=== PATIENT | male | born 1950 | race Caucasian/White ===

== ENCOUNTER 2016-11-21 07:40 | Day surgery (SDC) | payer BC ==
[2016-11-18 14:01] VITALS: BMI 21.6
[2016-11-21] MEDS ORDERED: BUPIVACAINE HCL/PF 2.5 MG/ML - 30 ML VIAL IJ ONE (11:23)
[2016-11-21] MEDS ORDERED: PROPOFOL 20 ML ONE (11:56)
[2016-11-21] MEDS ORDERED: CLINDAMYCIN PHOSPHATE 600 MG/4 ML VIAL ONE (12:07)
[2016-11-21] MEDS ORDERED: DEXAMETHASONE SOD PHOSPHATE 4 MG/1 ML VIAL ONE (12:07)
[2016-11-21] MEDS ORDERED: ONDANSETRON 4 MG/2 ML VIAL ONE (12:07)
[2016-11-21] MEDS ORDERED: KETOROLAC TROMETHAMINE 30 MG/1 ML VIAL ONE (12:17)
[2016-11-21] MEDS ORDERED: BUPIVACAINE HCL/PF 0.25% (2.5MG/ML) 10 ML VIAL IJ ONE (12:20)
[2016-11-21 13:59] VITALS: TEMP 97.6
[2016-11-21] MEDS ORDERED: oxyCODONE HCL 5 MG TABLET PO PRN (14:42)
[2016-11-21] MEDS ORDERED: ONDANSETRON 4 MG/2 ML VIAL IVPUSH PRN (14:42)
[2016-11-21] MEDS ORDERED: LACTATED RINGERS SOLUTION 1,000 ML IV SCH (14:45)
[2016-11-21 15:09] VITALS: BP 124/72; PULSE 56
--- NOTE | 2016-11-24 11:54 | OP ---
DATE OF OPERATION: 11/21/2016 SURGEON: Young Canchola MD PUMP ERECTOR: LISA Johnson PREOPERATIVE DIAGNOSES: 1. Right knee medial and lateral meniscal tear. 2. Right knee cartilage tear. 3. Right knee synovitis. POSTOPERATIVE DIAGNOSES: 1. Right knee medial and lateral meniscal tear. 2. Right knee cartilage tear. 3. Right knee synovitis. PROCEDURE: 1. Right knee arthroscopy with partial meniscectomy medial and lateral meniscus. 2. Right knee arthroscopy with chondroplasty. 2. Right knee arthroscopy with synovectomy major. CPT CODE: 31963, 14651, 53619 FINDINGS: 1. Medial meniscus body and posterior horn tear. 2. Lateral meniscus posterior horn tear. 3. Synovitis patellofemoral medial and lateral notch. 4. Anterior grade 2 cartilage anterior medial tibial plateau. 5. ACL and PCL intact. 6. Anterior grade 1-2 cartilage anterior lateral tibial plateau. 7. Anterior grade 2 cartilage patella facet patellofemoral joint. PROCEDURE: Informed consent was obtained. The patient was taken to the operating room where the right lower extremity was prepped and draped in a sterile fashion. A tourniquet was placed on the right upper thigh but not inflated. Using standard arthroscopic technique, a lateral incision and portal were made which allowed for introduction of the camera into the suprapatellar bursa. This was then taken to the medial joint line where under direct visualization, a medial incision and portal were made. Excessive synovium noted in the medial, lateral, patellofemoral and notch area was removed by the up-biting shaver and Bovie cautery. This was found to bring inflammatory tissue into the joint surface, a source of joint pain and dysfunction. Probing of the medial and lateral meniscus found tears described in the findings. These were removed with an up-biting shaver and taken back to a stable rim. Grade 2-3 degenerative changes were treated with chondroplasty, removing all flaking surfaces with low setting Bovie used along the periphery. Grade 4 changes were treated with abrasion-plasty. All areas of the knee were once again re-examined. The knee was then drained. A single suture was placed on all portals. Sterile dressing was placed. The patient was transferred to the recovery room. YOUNG CANCHOLA M.D. [id number]
--- NOTE | 2016-11-25 17:00 | PATH ---
Surgical Pathology Report Patient Name: ARVIND ALVAREZ [facility]. Rec. #: [id number] /Age/Gender: 1950 (Age: 66) / M Account: [id number] Location: [facility] AMBUL[facility]ORY Taken: 11/21/2016 Received: 11/21/2016 Reported: 11/25/2016 Physicians: Urbano Baeza M.D. Specimen(s) Received RIGHT KNEE SHAVINGS Clinical History Right knee internal derangement Final Diagnosis KNEE, RIGHT, ARTHROSCOPIC SHAVINGS: CHONDROCALCINOSIS (PSEUDOGOUT) INVOLVING CARTILAGE AND FIBROSYNOVIAL TISSUE. Electronically Signed Marla Chavira M.D. Gross Description Received in formalin, labeled "right knee shavings," is a 4.0 x 3.2 x 0.3 cm. aggregate of grover-yellow soft tissue fragments. A reimbursement representative portion is submitted in one cassette. /11/21/201611/21/2016
== END 2016-11-21 15:13 | disposition home or self-care (01) ==
LOC: FASU 07:40
PROVIDERS: ATTEND Orthopaedic Surgery
PROC: 0SBC4ZZ Excision of Right Knee Joint, Percutaneous Endoscopic Approach (ICD-10-PCS; 2016-11-21)
PROC: 0SBC4ZZ Excision of Right Knee Joint, Percutaneous Endoscopic Approach (ICD-10-PCS; principal; 2016-11-21 12:16)
DX: S83.241A Other tear of medial meniscus, current injury, right knee, initial encounter (principal); S83.281A Other tear of lateral meniscus, current injury, right knee, initial encounter; S83.8X1A Sprain of other specified parts of right knee, initial encounter; M65.861 Other synovitis and tenosynovitis, right lower leg; X58.XXXA Exposure to other specified factors, initial encounter; Y93.9 Activity, unspecified; Y92.9 Unspecified place or not applicable
CPT/HCPCS: 88304-TC; 94760